=== PATIENT | female | born 1960 | race Two or more races ===

== ENCOUNTER 2018-02-14 21:11 | Emergency (ER) | payer OTHER, SELFPAY ==
[~2018-02-14] VITALS: Ht 165.1 cm; Wt 66.5 kg
[2018-02-14 22:34] LABS: BASOPHILS # (AUTO) 0.02 x10^3/uL (0-0.1); BASOPHILS % (AUTO) 1 % (0-1); EOSINOPHILS # (AUTO) 0.11 x10^3/uL (0-0.4); EOSINOPHILS % (AUTO) 2 % (1-7); LYMPHOCYTES # (AUTO) 1.65 x10^3/uL (1-3.4); LYMPHOCYTES % (AUTO) 34 % (22-44); MD NO; MEAN CORPUSCULAR HEMOGLOBIN 32.5 pg (27.0-34.8); MEAN CORPUSCULAR HGB CONC 33.6 g/dL (32.4-35.8); MEAN CORPUSCULAR VOLUME 96.7 fL (80-100); MEAN PLATELET VOLUME 6.2 fL (7.4-10.4); MONOCYTES # (AUTO) 0.29 x10^3/uL (0.2-0.8); MONOCYTES % (AUTO) 6 % (2-9); NEUTROPHILS % (AUTO) 57 % (42-75); PLATELET COUNT 212 x10^3/uL (130-400); RED CELL DISTRIBUTION WIDTH 13.4 % (9.6-15.2)
[2018-02-14 23:06] LABS: ALANINE AMINOTRANSFERASE 28 U/L (12-78); ANION GAP 8 mmol/L (5-15); CALCIUM 9.1 mg/dL (8.5-10.1); CHLORIDE 104 mmol/L (98-107); CREATININE 0.83 mg/dL (0.55-1.02)
[2018-02-14 23:08] LABS: TROPONIN I < 0.015 ng/mL (0.000-0.045)
[2018-02-14 23:16] LABS: ALKALINE PHOSPHATASE 56 U/L (45-117); BILIRUBIN,TOTAL 0.3 mg/dL (0.2-1.0); FREE T4 (FREE THYROXINE) 0.81 ng/dL (0.76-1.46); TOTAL PROTEIN 7.4 g/dL (6.4-8.2)
[2018-02-14 23:30] VITALS: BP 130/86
[2018-02-14 23:54] LABS: MICROSCOPIC AUTO
[2018-02-14 23:56] LABS: CULTURE INDICATED? YES
== END 2018-02-15 00:15 | disposition home or self-care (01) ==
LOC: ED 23:37
DX: R55 Syncope and collapse (principal)
CPT/HCPCS: 71045; 80053; 81001; 82962; 84439; 84443; 84484; 85025; 87086; 93005; 99285